=== PATIENT | female | born 1995 | race Caucasian/White ===

== ENCOUNTER 2019-10-28 20:48 | Inpatient (IN) ==
[~2019-10-28 20:48] MED LIST: CEFAZOLIN 2000MG 2,000 MG/15 ML SYR IV SCH; CITRIC ACID/SODIUM CITRATE 15 ML UDC PO SCH
[2019-10-28] MEDS ORDERED: LACTATED RINGER'S 1,000 ML IV SCH (21:15)
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
[2019-10-28] MEDS ORDERED: OXYTOCIN 10 UNITS/ML VIAL ONE (21:26)
[2019-10-28] MEDS ORDERED: fentaNYL citrate 100 MCG/2 ML VIAL ONE (21:26)
[2019-10-28] MEDS ORDERED: MoRPHine SULFATE PF 1 MG/ML 10 ML AMP/VIAL ONE (21:26)
[2019-10-28 21:35] LABS: Basophils # (auto) 0.02 K/uL (0-0.2); Basophils % (auto) 0.2 %; Eosinophils # (auto) 0.08 K/uL (0-0.5); Eosinophils % (auto) 0.9 %; Hematocrit (blood only) 35.8 % (37-47); Hemoglobin 12.5 g/dL (12.0-16.0); Immature Granulocytes # (auto) 0.09 K/uL (0.00-0.02); Lymphocytes # (auto) 1.83 K/uL (1.2-3.4); Lymphocytes % (auto) 19.6 %; Mean Corpuscular Volume 88.8 fL (80-100); Mean Platelet Volume 11.4 fL (7.4-10.4); Monocytes # (auto) 1.08 K/uL (0.11-0.59); Monocytes % (auto) 11.6 %; Neutrophils # (auto) 6.23 K/uL (1.4-6.5); Neutrophils % (auto) 66.7 %; Platelet Count 168 K/uL (130-400); RDW Standard Deviation 42.2 fL (36.4-46.3); Red Blood Count 4.03 M/uL (4.2-5.4); White Blood Count 9.33 K/uL (4.8-10.8)
[2019-10-28 21:55] LABS: Mean Corpuscular Hgb Conc 34.9 g/dL (32-36)
[2019-10-28] MEDS ORDERED: NALOXONE HCL 1 MG in SODIUM CHLORIDE 0.9% 1000ML 1,000 ML IV PRN (22:11)
[2019-10-28] MEDS ORDERED: MoRPHine SULFATE PF 1 MG/ML 10 ML AMP/VIAL INT SPINAL ONE (22:11)
[2019-10-28] MEDS ORDERED: MEPERIDINE HCL 25 MG/ML CARP IV PRN (22:11)
[2019-10-28] MEDS ORDERED: NALBUPHINE HCL INJ 10 MG/ML AMP IV PRN (22:11)
[2019-10-28] MEDS ORDERED: ePHEDrine sulfate 50 MG/ML AMP IV PRN (22:11)
[2019-10-28] MEDS ORDERED: NALOXONE HCL 0.08 MG in SYRINGE 1.8 ML IV PRN (22:11)
[2019-10-28] MEDS ORDERED: ONDANSETRON INJ 2 MG/ML 2 ML VIAL IV PRN (22:11)
[2019-10-28] MEDS ORDERED: NALOXONE HCL 0.4 MG/1 ML VIAL/CARP IV PRN (22:11)
[2019-10-28] MEDS ORDERED: LACTATED RINGER'S 500 ML IV PRN (22:11)
[2019-10-28] MEDS ORDERED: DC INTRASPINAL MORPHINE SCH (22:15)
[2019-10-28] MEDS ORDERED: SODIUM CHLORIDE 0.9% 1000ML 1,000 ML IV SCH (22:15)
[2019-10-28] MEDS ORDERED: NO NARCOTICS OR SEDATIVES SCH (22:15)
[2019-10-28] MEDS ORDERED: PHENYLEPHRINE 100MCG/ML 5ML SYR ONE (22:41)
[2019-10-28] MEDS ORDERED: MAGNESIUM HYDROXIDE SUSP 30 ML UDC PO PRN (22:55)
[2019-10-28] MEDS ORDERED: DIPHTHERIA/TETANUS/PERTUSSIS 0.5 ML SYR/VIAL IM ONE (22:55)
[2019-10-28] MEDS ORDERED: SENNA 8.6 MG TAB PO PRN (22:55)
[2019-10-28] MEDS ORDERED: SUPERCREAM 0.870% 15 GM JAR EXT PRN (22:55)
[2019-10-28] MEDS ORDERED: BENZOCAINE 20% AER SPR 82.5 GM CAN EXT PRN (22:55)
[2019-10-28] MEDS ORDERED: HYDROCORTISONE ACETATE 25 MG SUPP PR PRN (22:55)
--- NOTE | 2019-10-28 22:55 | Post Operative Brief Note ---
Immediate Post Op Note v1 Date of Surgery October 28, 2019 Pre & Post Diagnosis Operation Date: 10/28/19 22:00 Pre-Op Diagnosis: 1. Primary Section 2. Footling breech presentation 3. Spontaneous rupture of membranes at 36.6 weeks Post-Op Diagnosis: Same as preop I identified the patient and participated in the time-out.: Yes Procedure Operation Date: 10/28/19 22:00 Actual Procedures p Section in LD(Not Applicable) - Rosalba Zarate MD Surgeon Rosalba Zarate MD Town Clerk Dr Franks Estimated Blood Loss 500 Findings Consistent with Post-Op Diagnosis Fluids 1600 ml Drains Cardona Catheter (Placed after spinal, drained clear yellow urine, anethesia to monitor) Anesthesia Type Spinal Complications none Disposition Accompanied Patient To Recovery: Yes Disposition: L&D
--- NOTE | 2019-10-28 23:39 | Anesthesiology Progress Note ---
Date of Service October 28, 2019 Anesthesia Post Procedure Vital Signs Vital Signs: Temp Pulse Resp BP Pulse Ox 10/28/19 23:35 93 H 99 10/28/19 23:34 90 122/62 10/28/19 23:31 94 H 90 10/28/19 23:30 87 100 10/28/19 23:28 90 105/61 10/28/19 23:25 151 H 93 10/28/19 23:20 94 H 99 10/28/19 23:17 98 H 92 10/28/19 23:15 97.7 F 93 H 18 135/67 100 10/28/19 23:12 92 H 92 10/28/19 23:10 92 H 97 10/28/19 23:06 91 H 93 10/28/19 23:05 88 100 10/28/19 23:02 85 121/59 L 10/28/19 23:00 96 H 90 10/28/19 21:01 100 H 129/80 Transfer of Care Handoff Completed per policy Notes Mental Status: alert / awake / arousable and participated in evaluation Nausea / Vomiting: adequately controlled Pain: adequately controlled Airway Patency, RR, SpO2: stable & adequate BP & HR: stable & adequate Hydration State: stable & adequate Neuraxial Anesthesia: was administered and sensory block is resolving Anesthetic Complications: no major complications apparent and Pt Satisfied with anesthetic care
[2019-10-29] MEDS: OXYTOCIN 20 UNITS in LACTATED RINGER'S 1,000 ML IV SCH ×2 (00:50→09:56)
--- NOTE | 2019-10-29 02:13 | Operative Report ---
DATE OF OPERATION: 10/28/2019 PREOPERATIVE DIAGNOSES: The patient is a 24-year-old G1, P0 at 36 weeks and 5 days of gestation presenting with spontaneous rupture of membranes in active labor and footling breech presentation. POSTOPERATIVE DIAGNOSIS: The patient is a 24-year-old G1, P0 at 36 weeks and 5 days of gestation presenting with spontaneous rupture of membranes in active labor and footling breech presentation. PROCEDURE: Primary low transverse with Pfannenstiel skin incision. SURGEON: Rosalba Zarate MD WELDING INSTRUCTOR: Dr. Franks. ESTIMATED BLOOD LOSS: 500. FLUIDS: 1600 mL of lactated ringer. DRAINS: Cardona catheter drained 500 mL of clear urine. ANESTHESIA: Spinal, Dr. Leonardo. COMPLICATIONS: None. FINDINGS: Baby was a viable female infant delivered in footling breech presentation at 2212 p.m. Apgars 8/9. Weight was 2805 grams. Maternal findings, normal uterus, fallopian tubes and ovaries. DESCRIPTION OF PROCEDURE: The patient was taken to the operating room where spinal anesthesia was given without difficulty. She was placed in dorsal supine position with a leftward tilt. She was prepared and draped in usual sterile fashion. A Pfannenstiel skin incision was made and carried through to the underlying layer of fascia with the Bovie. Fascia was incised in the midline and incision was extended laterally with the help of Whittington scissors. Lower aspect of the fascial incision was grasped with 2 Gold clamps, elevated, underlying rectus muscles were dissected off sharply with Whittington scissors and then upper aspect of the fascial incision was then grasped with 2 Gold clamps, elevated, underlying rectus muscles were dissected off sharply with Whittington scissors. Rectus muscles were in the midline. Peritoneum was entered bluntly with fingers. Peritoneal incision was extended superiorly and inferiorly with good visualization of the bladder. Vesicouterine peritoneum was identified, grasped with pickups, entered sharply with Metzenbaum scissors. Bladder flap was created digitally and bladder blade was reinserted. Lower uterine segment was incised in transverse fashion, incision was extended laterally with the help of fingers and then baby's feet were held brought to the incision and the legs and then body were delivered. Then the arms were delivered inn flexion position and the head without difficulty. Mouth and nose were suctioned. Cord was clamped x2 and cut. Baby was handed to the waiting pediatric team, Dr. Quiles. Cord blood was obtained. Placenta was delivered manually as intact and complete. Uterus was exteriorized, cleared of all clots and debris. The uterine incision was repaired with 0 Vicryl in a running locked fashion. An imbricating second layer was placed with a running locked fashion with 0 Vicryl. Excellent hemostasis was achieved. Posterior cul-de-sac was irrigated with warm normal saline and suctioned and then the uterus was returned to the abdomen. The pelvis was irrigated with warm normal saline and suctioned. Incision was checked to be again hemostatic. Then parietal peritoneum was reapproximated with 3-0 Vicryl. The rectus muscles were reapproximated with the same suture in a running fashion and excellent hemostasis was achieved over the muscle under the fascia. Rectus fascia was reapproximated with 0 Vicryl in a running fashion and subcuticular fat tissue was brought together with 3-0 Vicryl in a running fashion. Skin was closed with 4-0 Monocryl in a subcuticular fashion. The patient tolerated the procedure well. Sponge, lap, needle count was correct x3. She was given 2 grams of cefazolin before surgery. She was taken to recovery room in stable condition No complications happened and I was and Dr Franks was present during whole procedure. I attest to the content of the Intraoperative Record and any orders documented therein. Any exceptions are noted below. SHERIN
[2019-10-29] MEDS: KETOROLAC 30 MG/ML VIAL IV PRN ×2 (03:28→11:53)
[2019-10-29 07:23] LABS: Basophils # (auto) 0.01 K/uL (0-0.2); Basophils % (auto) 0.1 %; Eosinophils # (auto) 0.09 K/uL (0-0.5); Eosinophils % (auto) 0.7 %; Hematocrit (blood only) 31.1 % (37-47); Hemoglobin 10.8 g/dL (12.0-16.0); Immature Granulocytes # (auto) 0.04 K/uL (0.00-0.02); Immature Granulocytes % (auto) 0.3 %; Lymphocytes % (auto) 16.2 %; Mean Corpuscular Hemoglobin 30.7 pg (25-34); Mean Corpuscular Hgb Conc 34.7 g/dL (32-36); Mean Corpuscular Volume 88.4 fL (80-100); Mean Platelet Volume 11.3 fL (7.4-10.4); Monocytes # (auto) 1.57 K/uL (0.11-0.59); Monocytes % (auto) 12.7 %; Neutrophils # (auto) 8.62 K/uL (1.4-6.5); Platelet Count 154 K/uL (130-400); RDW Coefficient of Variation 13.1 % (11.5-14.5); RDW Standard Deviation 42.3 fL (36.4-46.3); Red Blood Count 3.52 M/uL (4.2-5.4); White Blood Count 12.33 K/uL (4.8-10.8)
[2019-10-29] MEDS: LACTATED RINGER'S 1,000 ML IV SCH ×4 (07:48→17:43)
[2019-10-29] MEDS: PRENATAL VITAMIN 1 TAB PO SCH (08:03)
[2019-10-29] MEDS: FERROUS SULFATE 325 MG TAB PO SCH (08:03)
[2019-10-29] MEDS: SIMETHICONE 80 MG CHEW PO SCH ×4 (08:03→20:41)
[2019-10-29] MEDS: DOCUSATE SODIUM 100 MG CAP PO SCH ×2 (08:03→20:41)
--- NOTE | 2019-10-29 09:29 | Surgery Progress Note ---
Date of Service October 29, 2019 Subjective doing well passing gas tolerating diet Physical Exam Constitutional: WD/WN, vitals as above comfortable abdomen soft fundus firm incision clean dry and intact no edema neg Romelia's Results & Data Vital Signs (Past 12 Hours) Vital Signs Temp Pulse Pulse Resp BP BP Pulse Ox 10/29/19 09:15 17 99 10/29/19 08:20 18 99 10/29/19 08:00 36.8 C 87 18 130/68 98 10/29/19 07:35 17 97 10/29/19 06:05 18 96 10/29/19 05:20 18 94 10/29/19 04:15 18 92 10/29/19 03:15 36.4 C L 92 H 16 116/73 96 10/29/19 03:00 18 93 10/29/19 02:00 18 93 10/29/19 01:38 36.6 C 98 H 18 111/64 92 10/29/19 01:23 93 H 134/61 10/29/19 01:20 102 H 98 10/29/19 01:15 89 18 97 10/29/19 01:10 95 H 96 10/29/19 01:05 83 97 10/29/19 01:00 89 97 10/29/19 00:55 85 97 10/29/19 00:50 92 H 133/66 98 10/29/19 00:45 93 H 18 97 10/29/19 00:40 94 H 98 10/29/19 00:35 100 H 99 10/29/19 00:30 89 98 10/29/19 00:25 94 H 98 10/29/19 00:20 91 H 100 10/29/19 00:16 88 123/63 10/29/19 00:15 88 18 99 10/29/19 00:10 85 98 10/29/19 00:08 90 87 L 10/29/19 00:05 86 18 99 10/29/19 00:04 91 H 125/61 10/29/19 00:02 89 92 10/29/19 00:00 89 99 10/28/19 23:57 86 91 10/28/19 23:55 83 18 98 10/28/19 23:54 80 117/63 10/28/19 23:50 89 99 10/28/19 23:49 87 92 10/28/19 23:45 91 H 18 97 10/28/19 23:44 119/70 10/28/19 23:40 84 99 10/28/19 23:35 93 H 18 99 10/28/19 23:34 90 122/62 10/28/19 23:31 94 H 90 10/28/19 23:30 87 100 10/28/19 23:28 90 105/61 10/28/19 23:25 151 H 18 93 10/28/19 23:20 94 H 99 10/28/19 23:17 98 H 92 10/28/19 23:15 36.5 C 93 H 18 135/67 100 10/28/19 23:12 92 H 92 10/28/19 23:10 92 H 97 10/28/19 23:06 91 H 93 10/28/19 23:05 88 100 10/28/19 23:02 85 121/59 L 10/28/19 23:00 96 H 90 Laboratory Results Laboratory Results - last 48 hr 10/28/19 10/28/19 10/29/19 21:28 21:28 06:54 WBC 9.33 12.33 H RBC 4.03 L 3.52 L Hgb 12.5 10.8 L Hct 35.8 L 31.1 L MCV 88.8 88.4 MCH 31.0 30.7 MCHC 34.9 34.7 RDW Std Deviation 42.2 42.3 RDW Coeff of Mikey 13.0 13.1 Plt Count 168 154 MPV 11.4 H 11.3 H Immature Gran % (Auto) 1.0 0.3 Neut % (Auto) 66.7 70.0 Lymph % (Auto) 19.6 16.2 [place] % (Auto) 11.6 12.7 Eos % (Auto) 0.9 0.7 Baso % (Auto) 0.2 0.1 Immature Gran # (Auto) 0.09 H 0.04 H Neut # (Auto) 6.23 8.62 H Lymph # (Auto) 1.83 2.00 [place] # (Auto) 1.08 H 1.57 H Eos # (Auto) 0.08 0.09 Baso # (Auto) 0.02 0.01 Blood Type O Positive Antibody Screen NEGATIVE
[2019-10-29] MEDS ORDERED: MEPERIDINE HCL 50 MG/ML CARP IV PRN (16:11)
[2019-10-29] MEDS ORDERED: DiphenhydrAMINE HCL 50 MG/ML VIAL IV PRN (16:11)
[2019-10-29] MEDS ORDERED: KETOROLAC 30 MG/ML VIAL IV PRN (16:11)
[2019-10-29] MEDS ORDERED: ONDANSETRON INJ 2 MG/ML 2 ML VIAL IV PRN (16:11)
[2019-10-29] MEDS ORDERED: PROMETHAZINE HCL 25 MG in SODIUM CHLORIDE 0.9% 50 ML IV PRN (16:11)
[2019-10-29] MEDS: IBUPROFEN 600 MG TAB PO PRN ×2 (16:50→20:43)
[2019-10-29] MEDS ORDERED: bisacodyL 5 MG TABEC PO SCH (20:00)
[2019-10-29] MEDS: OXYCODONE/ACETAMINOPHEN 5mg/325mg TAB PO PRN (20:43)
[2019-10-30] MEDS: IBUPROFEN 600 MG TAB PO PRN ×4 (03:38→20:02)
[2019-10-30] MEDS: OXYCODONE/ACETAMINOPHEN 5mg/325mg TAB PO PRN ×3 (05:36→20:01)
[2019-10-30 06:33] LABS: Hematocrit (blood only) 31.9 % (37-47); Hemoglobin 11.1 g/dL (12.0-16.0)
[2019-10-30] MEDS: LACTATED RINGER'S 1,000 ML IV SCH ×4 (07:19→14:13)
[2019-10-30] MEDS: DOCUSATE SODIUM 100 MG CAP PO SCH ×2 (08:04→21:25)
[2019-10-30] MEDS: SIMETHICONE 80 MG CHEW PO SCH ×4 (08:04→21:25)
[2019-10-30] MEDS: FERROUS SULFATE 325 MG TAB PO SCH (08:04)
[2019-10-30] MEDS: PRENATAL VITAMIN 1 TAB PO SCH (08:04)
--- NOTE | 2019-10-30 08:43 | Obstetrical Progress Note ---
Date of Service October 30, 2019 Assessment & Plan Admission and Anticipated Discharge Date Admission Date: October 28, 2019 Subjective Patient is seen and examined. She feels well, no complaints. Pain is under control with oral meds. Ambulating without dizziness Voiding without difficulty Tolerating regular diet with out N&V Flatus + BM + Bleeding is minimal No fever/ chills/ CP/ SOB/ N&V/ Leg pain Breast feeding without problems Vital Signs Temp Pulse Pulse Resp BP Pulse Ox 10/30/19 07:52 36.6 C 109 H 22 156/73 H 97 10/30/19 00:00 36.7 C 90 18 110/71 10/29/19 19:30 36.5 C 87 18 96/60 L 10/29/19 16:33 36.6 C 100 H 17 123/66 98 10/29/19 16:00 17 98 10/29/19 14:39 17 98 10/29/19 13:44 18 99 10/29/19 12:09 17 99 10/29/19 12:00 36.8 C 92 H 18 112/62 98 10/29/19 11:28 17 98 10/29/19 10:06 17 99 10/29/19 09:15 17 99 Intake and Output 10/29/19 10/30/19 10/30/19 22:59 06:59 14:59 Intake Total 550 / 3102 Output Total 2100 / 2100 Balance -1550 / 1002 Intake: Oral 550 / 1100 Output: Urine 500 / 500 Urine Amount (Catheter) 1600 / 1600 Cardona/Indwelling 1600 / 1600 Lab Results 10/28/19 10/28/19 10/29/19 Range/Units 21:28 21:28 06:54 WBC 9.33 12.33 H (4.8-10.8) K/uL RBC 4.03 L 3.52 L (4.2-5.4) M/uL Hgb 12.5 10.8 L (12.0-16.0) g/dL Hct 35.8 L 31.1 L (37-47) % MCV 88.8 88.4 (80-100) fL MCH 31.0 30.7 (25-34) pg MCHC 34.9 34.7 (32-36) g/dL RDW Std Deviation 42.2 42.3 (36.4-46.3) fL RDW Coeff of Mikey 13.0 13.1 (11.5-14.5) % Plt Count 168 154 (130-400) K/uL MPV 11.4 H 11.3 H (7.4-10.4) fL Immature Gran % (Auto) 1.0 0.3 % Neut % (Auto) 66.7 70.0 % Lymph % (Auto) 19.6 16.2 % Rank[place] % (Auto) 11.6 12.7 % Eos % (Auto) 0.9 0.7 % Baso % (Auto) 0.2 0.1 % Immature Gran # (Auto) 0.09 H 0.04 H (0.00-0.02) K/uL Neut # (Auto) 6.23 8.62 H (1.4-6.5) K/uL Lymph # (Auto) 1.83 2.00 (1.2-3.4) K/uL Rankin # (Auto) 1.08 H 1.57 H (0.11-0.59) K/uL Eos # (Auto) 0.08 0.09 (0-0.5) K/uL Baso # (Auto) 0.02 0.01 (0-0.2) K/uL Blood Type O Positive Antibody Screen NEGATIVE 10/30/19 Range/Units 06:14 WBC (4.8-10.8) K/uL RBC (4.2-5.4) M/uL Hgb 11.1 L (12.0-16.0) g/dL Hct 31.9 L (37-47) % MCV (80-100) fL MCH (25-34) pg MCHC (32-36) g/dL RDW Std Deviation (36.4-46.3) fL RDW Coeff of Mikey (11.5-14.5) % Plt Count (130-400) K/uL MPV (7.4-10.4) fL Immature Gran % (Auto) % Neut % (Auto) % Lymph % (Auto) % Rank[place] % (Auto) % Eos % (Auto) % Baso % (Auto) % Immature Gran # (Auto) (0.00-0.02) K/uL Neut # (Auto) (1.4-6.5) K/uL Lymph # (Auto) (1.2-3.4) K/uL Rankin # (Auto) (0.11-0.59) K/uL Eos # (Auto) (0-0.5) K/uL Baso # (Auto) (0-0.2) K/uL Blood Type Antibody Screen PE: General: Alert, orientedx3, NAD CVS: S1S2 RRR Lungs; CTAB Abd: soft, NT, ND, BS+, fundus firm, below Umbilicus Incision: Clean, dry, intact Perineum intact, Lochia rubra minimal Ext; NT, no edema AP: 24 yo s/p C Section, pod# 2 VSS Afebrile doing well One time elevated BP, asymptomatic, will order labs Continue routine postop care Encourage ambulation, PO intake All questions were answered D/C home tomorrow Results & Data ([facility]) Vital Signs (Past 12 Hours) Vital Signs Temp Pulse Resp BP Pulse Ox 10/30/19 07:52 36.6 C 109 H 22 156/73 H 97 10/30/19 00:00 36.7 C 90 18 110/71
[2019-10-30 09:01] LABS: Basophils # (auto) 0.01 K/uL (0-0.2); Basophils % (auto) 0.1 %; Eosinophils # (auto) 0.17 K/uL (0-0.5); Eosinophils % (auto) 1.7 %; Hemoglobin 11.2 g/dL (12.0-16.0); Immature Granulocytes # (auto) 0.05 K/uL (0.00-0.02); Immature Granulocytes % (auto) 0.5 %; Lymphocytes % (auto) 12.8 %; Mean Corpuscular Hemoglobin 30.9 pg (25-34); Mean Corpuscular Volume 88.4 fL (80-100); Mean Platelet Volume 11.1 fL (7.4-10.4); Monocytes # (auto) 1.18 K/uL (0.11-0.59); Monocytes % (auto) 11.6 %; Neutrophils # (auto) 7.43 K/uL (1.4-6.5); Neutrophils % (auto) 73.3 %; Platelet Count 143 K/uL (130-400); RDW Coefficient of Variation 13.2 % (11.5-14.5); RDW Standard Deviation 42.4 fL (36.4-46.3); Red Blood Count 3.62 M/uL (4.2-5.4); White Blood Count 10.14 K/uL (4.8-10.8)
[2019-10-30 09:38] LABS: Alanine Aminotransferase 22 U/L (12-78); Albumin Level 1.9 gm/dl (3.4-5.0); Aspartate Aminotransferase 24 U/L (15-37); BUN Creatinine Ratio 22.6 (10-20); Blood Urea Nitrogen 11 mg/dl (7-18); Calcium 8.6 mg/dl (8.5-10.1); Carbon Dioxide 23 mmol/L (21-32); Chloride 105 mmol/L (98-107); Creatinine Clr Calc Pharmacy 197.8 ml/min; Est GFR (African American) > 150.0; Est GFR (Non-African American) 135.4; Glucose 68 mg/dl (70-99); Potassium 3.4 mmol/L (3.5-5.1); Sodium 134 mmol/L (136-145)
[2019-10-30 09:42] LABS: Albumin Globulin Ratio 0.6 (0.9-2); Alkaline Phosphatase 101 U/L (45-117); Bilirubin,Total 0.3 mg/dl (0.2-1); Globulin 3.2 gm/dl (2.5-4.0); Total Protein 5.1 gm/dl (6.4-8.2)
[2019-10-30] MEDS ORDERED: bisacodyL 10 MG SUPP PR PRN (22:55)
[2019-10-31] MEDS: IBUPROFEN 600 MG TAB PO PRN ×3 (00:32→13:14)
[2019-10-31] MEDS: OXYCODONE/ACETAMINOPHEN 5mg/325mg TAB PO PRN ×3 (00:33→13:15)
[2019-10-31] MEDS: SIMETHICONE 80 MG CHEW PO SCH (07:44)
[2019-10-31] MEDS: FERROUS SULFATE 325 MG TAB PO SCH (07:44)
[2019-10-31] MEDS: PRENATAL VITAMIN 1 TAB PO SCH (07:44)
[2019-10-31] MEDS: DOCUSATE SODIUM 100 MG CAP PO SCH (07:44)
--- NOTE | 2019-11-03 10:57 | Discharge Summary ---
DETAILS OF ADMISSION: The patient is a 24-year-old G1, P0, at 36 weeks and 5 days of gestation, who presented with spontaneous rupture of membranes, in active labor with footling breech presentation. She was taken to the operating room for primary low transverse with Pfannenstiel skin incision, delivered a viable female at 2212 p.m. Apgars 8/9, weight was 2805 grams. Her surgery was uncomplicated. See dictated OP note for details. On postop day #1, the patient was doing well. Vital signs stable, afebrile. Incision was clean, dry and intact. Extremities are nontender. No edema. Her postop H and H was 10.8/31.7. On postoperative day #2, the patient was doing well. Vital signs stable, afebrile, pain was under control with medications, ambulating, tolerating a regular diet, passing gas, having moved her bowels, without problems. Physical exam was unremarkable. Incision was clean, dry and intact. Extremities nontender, no edema. H and H was 11.1/31.9. The patient was discharged home on postop day #3. Discharge instructions were given when to call, prescriptions were written for pain. She is to be seen in the office in a week. All questions were answered.
== END 2019-10-31 15:40 | disposition home or self-care (01) | DRG 788 ==
LOC: OPB 20:48 → 4S2 20:49